=== PATIENT | female | born 1985 | race Caucasian/White ===

== ENCOUNTER 2022-02-13 00:58 | Day surgery (SDC) | payer OTHER, SELFPAY ==
[2022-02-04 11:51] VITALS: BMI 56.7
--- NOTE | 2022-02-04 11:58 | PC.NURSE ---
Report to the Outpatient Waiting Room, entrance under the green pavilion located off [facility], at time 0600 on date 02/13/22. OR Time: 0730. PT NOTIFIED THAT SHE WOULD RECEIVE A CALL WEDNESDAY AFTERNOON IF SURGERY TIME CHANGES. - You and your visitor will be asked a series of questions to screen for COVID 19 for your protection. - Only one visitor is allowed at this time. - The patient visitor is requested to leave or wait in car when not with patient. - A mask is required within the hospital. Patients may have clear liquids (water, carbonated beverages, clear teas, apple juice) until 3 hours prior to surgery with a maximum of 20 ounces. - No food from midnight until time of surgery Take the following medications with a SIP of water the morning of surgery: BUSPIRONE, ESCITALOPRAM, HYDROXYZINE Medications to discontinue per physician: VITAMINS/SUPPLEMENTS Date to take last dose: 02/09/22 Please no make-up, nail yi, hairspray, perfume, deodorant, or body powder the day of surgery. No jewelry (including any body piercings) or valuables the day of surgery, leave them at home. Please take a shower or bath the night before, or the morning of, surgery with an antibacterial soap. Wear comfortable, loose fitting clothing. - Jewelry must be removed prior to entering the operating room. Rings and piercings that are not removed may be cut off. - The hospital will not accept responsibility for valuables. - Please leave all valuables, including medications, at home the day of surgery. If you are going home after surgery, a licensed milk pickup truck driver must drive you home. - NO public transportation without another adult. - We recommend that an adult stay with you for 24 hours following discharge. - We also recommend that you do not drive, make important decision, drink alcoholic beverages, or take any drugs that were not prescribed by your health care provider for at least 24 hours after your discharge time. Follow any additional instructions given to you from your surgeon. If you or anyone in your household have experienced Covid symptoms in the past week, please notify your surgeon or the nurse liaison at the phone number below for possible testing. Telephone instructions given to PT - SUNNY VAZQUEZ and asked if any additional questions and then verbalized understanding. Patient advised to call surgeon office or pre surgery nurse liaison [phone] if any additional questions.
--- NOTE | 2022-02-12 10:15 | P.HP_ITS ---
H&P: HPI History of Present Illness Date/Time: 02/12/22 10:15 Chief Complaint: hearing loss recurrent otitis media eustachian tube dysfunction Narrative: planned surgical procedure Review of Systems Review of Systems: All systems reviewed & are unremarkable except as noted in HPI and below PMFSH Past Medical History Medical History Anxiety Depression Migraines Surgical History Surgical History [place] teeth removed Social History Social History Smoking packs per day: 0.5 Smoking cigarettes per day: 10.0 Years smoked: 12 Smoking pack-years: 6.00 Smoking status: Former smoker Tobacco type: cigarettes Smoking end date: 07/26/16 Alcohol intake: never Substance use: never Substance use type: does not use Spiritual care concerns: No Meds Home Medications and Allergies Home Medications Medication Instructions Recorded Confirmed Type ergocalciferol (vitamin D2) 1,250 1,250 mcg PO WEEKLY 07/02/20 02/04/22 History mcg (50,000 unit) capsule escitalopram oxalate 20 mg tablet 20 mg PO DAILY 07/02/20 02/04/22 History dmwyqtlw-gop-yyrie ac 400 1 tablet PO DAILY 07/02/20 02/04/22 History mcg-calcium carb 500 mg-vit K1 20 mcg tablet (Women's 50 Plus Multivitamin) metformin 1,000 mg tablet 1,000 mg PO DAILY 12/17/21 02/04/22 History buspirone 15 mg tablet 1 tablet PO TID 02/04/22 02/04/22 History cariprazine 1.5 mg capsule 1 cap PO HS 02/04/22 02/04/22 History (Vraylar) hydroxyzine HCl 25 mg tablet 1 tablet PO BID 02/04/22 02/04/22 History Allergies Allergy/AdvReac Type Severity Reaction Status Date / Time No Known Allergies Allergy Verified 02/04/22 11:48 Exam Narrative: normal ENT exam other than fluid in both ears. Assessment and Plan Assessment and plan (1) Serous otitis media: Code(s): H65.90 - Unspecified nonsuppurative otitis media, unspecified ear Status: Acute Assessment and Plan: plan is for OR bilateral myringotomy tube insertion, have not seen this patient prior see my decision to perform this is based solely on the patient's reported history EMR as well as my partners previous documentation, this would limit any liability I have for any of this decision making. Risks were discussed including bleeding infection damage to surrounding structures facial nerve paralysis total deafness persistent perforation cholesteatoma formation. (2) Otitis media of both ears: Code(s): H66.93 - Otitis media, unspecified, bilateral Status: Acute (3) Dysfunction of both eustachian tubes: Code(s): H69.83 - Other specified disorders of Eustachian tube, bilateral Status: Acute
[2022-02-13] VITALS (7 sets, daily range): BP systolic 127–155; BP diastolic 52–98; PULSE 67–81; RESP 10–16; TEMP 36.4–36.6; O2SAT 100
--- NOTE | 2022-02-13 07:10 | WPDHPUPDATE1 ---
History and Physical Update Update Date/Time: 02/13/22 07:10 History and Physical has been reviewed, including an updated exam of the patient. There are NO changes in the patient's condition. Risks, benefits, and alternatives have been discussed and questions answered. Patient agrees to proceed with procedure.
[2022-02-13] MEDS: LACTATED RINGERS 1,000 ML 30 ML IV CONT (08:10)
[2022-02-13] MEDS: CIPROFLOXACIN HCL 0.3% OP SOLN 2.5 ML BTL 4 DROP EACH EAR (08:32)
--- NOTE | 2022-02-13 08:53 | W.PM.PROC2 ---
Procedure Note - Detailed Date of Procedure 02/13/22 Pre-op Diagnosis Jayme Chronic Otitis Media Post-op Diagnosis Same Procedure Performed Bilateral myringotomy T-tube insertion Surgeon Frantz Buchanan MD Anesthesia General Indications See above Findings Aerated middle ears no fluid today Description of Procedure Patient identified consent verified. Patient brought operating room. Time-out performed. General anesthesia induced mask ventilation maintained. [place] microscope brought into the field this was a bilateral procedure myringotomies made anterior-inferior quadrant T tubes placed scant amount of bleeding I performed all dictated portions bilateral procedure same findings both sides. No complications. Patient taken to PACU after care being given Anesthesiology. Estimated Blood Loss -1.0 Drains No Packing No Pathology None sent Complications No immediate complications Condition Stable
--- NOTE | 2022-02-13 09:12 | SUR.PHASEI ---
Simple mask removed at 0908.
== END 2022-02-13 10:19 | disposition home or self-care (01) ==
PROVIDERS: Visit Provider Otolaryngology
PROC: (CPT 69436; principal; 2022-02-13 08:30)
DX: H65.93 Unspecified nonsuppurative otitis media, bilateral (principal); H69.83 Other specified disorders of Eustachian tube, bilateral; Z87.891 Personal history of nicotine dependence; F41.9 Anxiety disorder, unspecified; F32.A Depression, unspecified; Z79.84 Long term (current) use of oral hypoglycemic drugs
CPT/HCPCS: 69436; A9270; J2704; J7120